=== PATIENT | female | born 1985 | race African-American/Black ===

== ENCOUNTER 2022-03-14 10:49 | Outpatient (CLI) | payer OTHER | END 2022-03-14 10:50 | disposition home or self-care (01) | LOC: CSHLAB 10:49 | PROVIDERS: ATTEND Family Medicine | DX: Z20.822 Contact with and (suspected) exposure to COVID-19 (principal) | CPT/HCPCS: 87811 ==

== ENCOUNTER 2022-03-18 19:00 | Inpatient (IN) | payer OTHER ==
[~2022-03-18 19:00] MED LIST: Bupivacaine/Epinephrine 0.25% 30 ML VIAL ONE
[2022-03-18] MEDS ORDERED: NS w/ Oxytocin 30 units 500 ML IV SCH ×2 (21:41)
[2022-03-18] MEDS ORDERED: hydrALAZINE 20 MG/ML VIAL SLOW IVP PRN (21:41)
[2022-03-18] MEDS ORDERED: Ondansetron PF 4 MG/2 ML Vial IVP PRN (21:41)
[2022-03-18] MEDS ORDERED: Promethazine HCl 25 MG/ML VIAL IM PRN (21:41)
[2022-03-18] MEDS ORDERED: Ibuprofen 800 MG TAB PO PRN (21:41)
[2022-03-18] MEDS ORDERED: Diphenoxylate HCl/Atropine Tablet PO PRN (21:41)
[2022-03-18] MEDS ORDERED: Carboprost 250 MCG/ML AMP IM PRN (21:41)
[2022-03-18] MEDS ORDERED: Lidocaine 1% (PF) 30 ML VIAL SC PRN (21:41)
[2022-03-18] MEDS ORDERED: Methylergonovine 0.2 MG/ML VIAL IM PRN (21:41)
[2022-03-18] MEDS ORDERED: HYDROcodone/Acetaminophen 5/325 mg Tablet PO PRN (21:41)
[2022-03-18] MEDS ORDERED: Acetaminophen 500 MG TAB PO PRN (21:41)
[2022-03-18] MEDS ORDERED: Lactated Ringer's 1,000 ML IV SCH (21:41)
[2022-03-18] MEDS ORDERED: Misoprostol 200 MCG TAB PR PRN (21:41)
[2022-03-18 22:28] VITALS: BMI 30.9
[2022-03-18 22:51] LABS: Hemoglobin 9.4 g/dL (12.0-15.5); Mean Corpuscular HGB CONC 32.9 g/dL (32.0-36.0); Mean Corpuscular Hemoglobin 29.7 pg (27.0-33.0); Mean Corpuscular Volume 90.5 fl (81.6-98.3); Platelet Count 151 10x3/uL (150-450); RBC Distribution Width 13.4 % (11.5-14.5); Red Blood Cell (RBC) Count 3.16 10x6/uL (3.90-5.03); White Blood Cell (WBC) Count 4.9 10x3/uL (3.5-10.5)
[2022-03-18 23:14] LABS: HBSAg Index 0.22 S/CO (0-0.99); Hep B Surf Ag Non-Reactive S/CO (NonReactive); Syphilis Antibody Nonreactive (Nonreactive); Syphilis Antibody Index 0.06 S/CO (<1.00 Non-Reactive)
[2022-03-19] MEDS: Misoprostol 100 MCG TAB PO SCH (01:54)
[2022-03-19] MEDS ORDERED: Fentanyl 2 mcg/Bup 0.1% Cadd 100 ML ONE (16:13)
[2022-03-19] MEDS ORDERED: Ondansetron PF 4 MG/2 ML Vial IVP PRN (17:21)
[2022-03-19] MEDS ORDERED: Lactated Ringer's 500 ML IV PRN (17:21)
[2022-03-19] MEDS ORDERED: Acetaminophen 325 MG TAB PO PRN (17:21)
[2022-03-19] MEDS ORDERED: Moisturizing Cream (Eucerin) 113 GM JAR TOP PRN (17:21)
[2022-03-19] MEDS ORDERED: Naloxone HCl 0.4 mg/ml Vial IVP PRN ×2 (17:21)
[2022-03-19] MEDS ORDERED: ePHEDrine Sulfate 50 MG/10 ML VIAL SLOW IVP PRN (17:21)
[2022-03-19] MEDS ORDERED: diphenhydrAMINE 50 MG/ML VIAL IVP PRN (17:21)
[2022-03-19] MEDS ORDERED: Promethazine HCl 25 MG/ML VIAL IM PRN (17:21)
[2022-03-19] MEDS ORDERED: Fentanyl 2 mcg/Bupivacaine 0.1% Cassette 100 ML EPIDURAL SCH (17:30)
[2022-03-19] MEDS ORDERED: Communication Order-Pharmacy FS SCH (17:30)
[2022-03-20] MEDS ORDERED: NS w/ Oxytocin 30 units 500 ML IV SCH (02:20)
[2022-03-20] MEDS ORDERED: diphenhydrAMINE 25 MG CAP PO PRN (02:20)
[2022-03-20] MEDS ORDERED: Benzocaine-Menthol 82.5 ML CAN TOP PRN (02:20)
[2022-03-20] MEDS ORDERED: hydrALAZINE 20 MG/ML VIAL SLOW IVP PRN (02:20)
[2022-03-20] MEDS ORDERED: Bisacodyl 10 MG SUPP PR PRN (02:20)
[2022-03-20] MEDS ORDERED: Promethazine HCl 25 MG/ML VIAL IM PRN (02:20)
[2022-03-20] MEDS ORDERED: Boostrix 0.5 ML (Tdap) VIAL (>/=7 yrs of age) IM ONE (02:20)
[2022-03-20] MEDS ORDERED: Milk Of Magnesia 30 ML UDCUP PO PRN (02:20)
[2022-03-20] MEDS ORDERED: HYDROcodone/Acetaminophen 5/325 mg Tablet PO PRN (02:20)
[2022-03-20] MEDS ORDERED: Ondansetron PF 4 MG/2 ML Vial IVP PRN (02:20)
[2022-03-20] MEDS ORDERED: Lanolin Ointment 7 GM TUBE TOP PRN (02:20)
[2022-03-20] MEDS: Misoprostol 100 MCG TAB PO SCH (05:35)
[2022-03-20] MEDS: Docusate 100 MG CAP PO SCH ×3 (05:36→21:55)
[2022-03-20] MEDS: Ibuprofen 800 MG TAB PO SCH ×3 (05:36→21:55)
[2022-03-20] MEDS: Ferrous Sulfate 325 MG TAB PO SCH ×2 (08:48→21:55)
[2022-03-20] MEDS: Prenatal Vitamin 1 TAB PO SCH (08:48)
[2022-03-21] MEDS ORDERED: Ventolin HFA Inhaler 60 PUFF INHALER INH PRN (06:21)
[2022-03-21] MEDS: Ibuprofen 800 MG TAB PO SCH (06:43)
[2022-03-21 08:21] VITALS: BP 130/78; TEMP 97.8
[2022-03-21] MEDS: Ferrous Sulfate 325 MG TAB PO SCH (11:08)
[2022-03-21] MEDS: Docusate 100 MG CAP PO SCH (11:08)
[2022-03-21] MEDS: Prenatal Vitamin 1 TAB PO SCH (11:08)
== END 2022-03-21 11:45 | disposition home or self-care (01) | DRG 807 ==
LOC: CSHLD 21:39 → CSHPP 03-20 01:02
PROVIDERS: ADMIT Family Medicine; ATTEND Family Medicine
PROC: 10E0XZZ Delivery of Products of Conception, External Approach (ICD-10-PCS; principal; 2022-03-19)
PROC: 10907ZC Drainage of Amniotic Fluid, Therapeutic from Products of Conception, Via Natural or Artificial Opening (ICD-10-PCS; 2022-03-19)
PROC: 3E0P7VZ Introduction of Hormone into Female Reproductive, Via Natural or Artificial Opening (ICD-10-PCS; 2022-03-19)
DX: O99.52 Diseases of the respiratory system complicating childbirth (principal); Z37.0 Single live birth; J45.909 Unspecified asthma, uncomplicated; Z3A.39 39 weeks gestation of pregnancy; Z79.899 Other long term (current) drug therapy
CPT/HCPCS: 36415; 51702; 85027; 86780; 86850; 86870; 86900; 86901; 87340; J0595; J2590